=== PATIENT | female | born 1980 | race Caucasian/White ===

== ENCOUNTER 2023-01-21 08:06 | Emergency (ER) | payer BC ==
--- NOTE | 2023-01-21 08:31 | ED Physician Documentation ---
PD HPI ABD PAIN - Stated complaint Stated Complaint: BACK PX,VOMIT - Chief complaint Chief Complaint: Abd Pain - History obtained from History obtained from: Patient - History of Present Illness Timing - onset: Yesterday Timing - duration: Hours (12) Timing - details: Abrupt onset, Still present Quality: Aching, Sharp, Pain Location: RUQ Radiation: Right flank Improved by: No: Eating, Laying still Worsened by: Moving, Palpation. No: Eating, Breathing Associated symptoms: Nausea. No: Fever, Vomiting, Diarrhea, Constipation, Dysuria, Chest pain Similar symptoms before: Has not had sx before (she has had kidney stones in the past, but this is different location for that. RUQ pain currently.) Recently seen: Not recently seen Review of Systems Constitutional: denies: Fever, Chills GI: denies: Nausea, Vomiting, Diarrhea Skin: denies: Rash, Lesions Neurologic: denies: Generalized weakness, Near syncope PD PAST MEDICAL HISTORY - Past Medical History Cardiovascular: None Respiratory: None : Kidney stones - Present Medications Home Medications: Ambulatory Orders Medication Instructions Recorded Confirmed HYDROcod/ACETAM 5/325 [Oracle 5/325] 1 ea PO Q6H PRN #10 tablet 01/21/23 Ondansetron Odt [Zofran] 4 mg TL Q6H PRN #10 tablet 01/21/23 - Allergies Allergies/Adverse Reactions: Allergies Allergy/AdvReac Type Severity Reaction Status Date / Time No Known Drug Allergies Allergy Verified 01/21/23 08:19 PD ED PE NORMAL - Vitals Vital signs reviewed: Yes - General General: Alert and oriented X 3, Well developed/nourished, Other (appears very uncomfortable, holding upper abd. ) - Neck Neck: Supple, no meningeal sign, No adenopathy - Cardiac Cardiac: RRR, No murmur - Respiratory Respiratory: Clear bilaterally - Abdomen Abdomen: Normal bowel sounds, Soft, Non distended, No organomegaly, Other (tender RUQ with guarding and mild rebound. Right CVA tender as well. ) - Female Female : Deferred - Rectal Rectal: Deferred - Derm Derm: Normal color, Warm and dry - Extremities Extremities: No edema, No calf tenderness / cord - Neuro Neuro: Alert and oriented X 3, No motor deficit, Normal speech Results - Vitals Vitals: Vital Signs - 24 hr 01/21/23 01/21/23 10:27 11:45 Temperature 36.9 C Heart Rate 80 80 Respiratory 14 20 Rate Blood Pressure 121/66 138/84 H O2 Saturation 95 98 Oxygen O2 Source Room air - Labs Labs: Laboratory Tests 01/21/23 01/21/23 01/21/23 08:26 08:26 09:54 WBC 13.3 H RBC 5.06 Hgb 14.7 Hct 43.0 MCV 85.0 MCH 29.1 MCHC 34.2 RDW 12.5 Plt Count 259 MPV 10.8 Neut # (Auto) 10.6 H Lymph # (Auto) 2.2 [place] # (Auto) 0.4 Eos # (Auto) 0.0 Baso # (Auto) 0.0 Absolute Nucleated RBC 0.00 Nucleated RBC % 0.0 Sodium 137 Potassium 4.1 Chloride 104 Carbon Dioxide 22 Anion Gap 11.0 BUN 14 Creatinine 0.9 Estimated GFR (MDRD) 69 L Glucose 135 H Calcium 9.5 Total Bilirubin 0.6 AST 45 H ALT 65 H Alkaline Phosphatase 40 L Total Protein 8.4 H Albumin 4.8 Globulin 3.6 Albumin/Globulin Ratio 1.3 Lipase 27 Urine Color STRAW Urine Clarity CLEAR Urine pH 7.5 Ur Specific [place] 1.020 Urine Protein NEGATIVE Urine Glucose (UA) NEGATIVE Urine Ketones 15 H Urine Occult Blood SMALL H Urine Nitrite NEGATIVE Urine Bilirubin NEGATIVE Urine Urobilinogen 0.2 (NORMAL) Ur Leukocyte Esterase NEGATIVE Urine RBC 6-10 H Urine WBC 0-3 Ur Squamous Epith Cells FEW Squamous Urine Bacteria Few Ur Microscopic Review INDICATED Urine Culture Comments NOT INDICATED Urine HCG, Qual NEGATIVE - Rads (name of study) RUQ abd U/S Relevant Findings:: Prelim report reviewed, See rad report, Other (US tech - riht hydronephrosis. Normal gallbladder.) abd/ppelvic CT Relevant Findings:: Prelim report reviewed, See rad report (right hydroureter/nephrosis down to the UVJ, with 7 mm stone in bladder. ) PD Medical Decision Making - ED course Complexity details: reviewed results (Hydronephrosis and ureter right side, with 7 mm stone in the bladder (presume recently pased). ), considered differential, d/w patient ED course: Was having considerable pain in the right side mainly the upper abdomen and flank. My initial clinical impression was more likely gallbladder or right upper quadrant. With that, we discussed (the patient and I and her significant other, the initial testing of ultrasound versus CT. Given the area of tenderness, I opted for ultrasound first. This showed normal gallbladder and bile duct. Hydronephrosis was noted. The patient was still having pain. She had been given IV pain medications and repeat dose. Further discussion on the findings and we opted for the CT scan at this point. The patient did have a considerable improvement in her pain after repeat IV medications. She states it improved quite a bit prior to getting the CT scan. The CT scan showed hydroureter and hydronephrosis with a 7 mm stone apparently in the bladder. It seems she passed it while here in the ER. She is feeling considerably improved though still some pains. Likely this is from irritation and ureteral spasm and may continue to some degree for a couple of days. I would suggest some anti-inflammatories and still some pain medicine to have periodically if needed. The subsequent pain should improve over the next day or 2 though as inflammation and spasms decrease. Departure - Departure Disposition: 01 Home, Self Care Clinical Impression: Right sided abdominal pain, Ureterolithiasis Condition: Stable Record reviewed to determine appropriate education?: Yes Instructions: ED Stone Renal Passed Prescriptions: HYDROcod/ACETAM 5/325 [Oracle 5/325] 1 ea PO Q6H PRN #10 tablet PRN Reason: Pain Ondansetron Odt [Zofran] 4 mg TL Q6H PRN #10 tablet PRN Reason: Nausea / Vomiting Comments: Your ultrasound and CT scan shows swelling of the kidney and right ureter down to the level of just about the bladder. There is a stone visible in the bladder at this point so looks like you just passed it. There can still be subsequent pains and cramps in through the abdomen and flank due to inflammation and spasming of the ureter even after the stone passes. Stay well-hydrated. Use some anti-inflammatory such as ibuprofen or naproxen 2 to 3 tablets 2 or 3 times daily over the next 3 to 4 days to reduce those symptoms. Ondansetron if needed for nausea. Add Tylenol if needed for pain. It would be less likely to need stronger pain medicine at this point but still occasionally with the spasms and inflammation. I wrote a prescription for some pain pills to have just in case. I sent your prescription to [facility] in [place]. Your urine itself showed some signs of blood but no signs of infection. I would anticipate improvement over the next several days. Discharge Date/Time: 01/21/23 11:45
[2023-01-21 08:42] LABS: BASOPHILS % (AUTO) 0.2 %; EOSINOPHILS % (AUTO) 0.1 %; HGB - HEMOGLOBIN 14.7 g/dL (12.0-16.0); LYMPHOCYTES # (AUTO) 2.2 10^3/uL (1.5-3.5); LYMPHOCYTES % (AUTO) 16.7 %; MEAN CORPUSCULAR HEMOGLOBIN 29.1 pg (27.0-31.0); MEAN CORPUSCULAR HGB CONC 34.2 g/dL (32.0-36.0); MEAN PLATELET VOLUME 10.8 fL (7.9-10.8); MONOCYTES # (AUTO) 0.4 10^3/uL (0.0-1.0); MONOCYTES % (AUTO) 2.9 %; NEUTROPHILS # (AUTO) 10.6 10^3/uL (1.5-6.6); NEUTROPHILS % (AUTO) 79.9 %; PLT - PLATELET COUNT 259 10^3/uL (130-450); RED BLOOD COUNT 5.06 10^6/uL (4.20-5.40); RED CELL DISTRIBUTION WIDTH 12.5 % (12.0-15.0); WHITE BLOOD COUNT 13.3 x10^3/uL (4.8-10.8)
[2023-01-21 08:52] LABS: ALBUMIN 4.8 g/dL (3.2-5.5); ALBUMIN/GLOBULIN RATIO 1.3 (1.0-2.2); BILIRUBIN,TOTAL 0.6 mg/dL (0.2-1.0); CALCIUM 9.5 mg/dL (8.5-10.3); CREATININE 0.9 mg/dL (0.4-1.0); POTASSIUM 4.1 mmol/L (3.5-5.0); TOTAL PROTEIN 8.4 g/dL (6.7-8.2)
[2023-01-21] MEDS ORDERED: HYDROmorphone 1 MG/ML CARPUJECT IVP STA ×2 (08:55→09:50)
[2023-01-21] MEDS ORDERED: KETOROLAC 15 MG/ML VIAL IVP STA (08:55)
[2023-01-21] MEDS ORDERED: SODIUM CHLORIDE 0.9% 1,000 ML IV STA (08:55)
[2023-01-21] MEDS ORDERED: ONDANSETRON 4 MG/2 ML VIAL IVP STA (08:55)
[2023-01-21] MEDS ORDERED: DROPERIDOL 5 MG/2 ML VIAL IVP STA (09:50)
[2023-01-21] MEDS ORDERED: iohexoL-300 100 ML VIAL ONE (10:01)
[2023-01-21 10:13] LABS: BILIRUBIN,URINE NEGATIVE (NEGATIVE); CLARITY,URINE CLEAR (CLEAR); GLUCOSE, URINE (UA) NEGATIVE (NEGATIVE); HCG UR QUAL NEGATIVE; KETONES,URINE (UA) 15 mg/dL (NEGATIVE); LEUKOCYTE ESTERASE, URINE NEGATIVE (NEGATIVE); NITRITE,URINE NEGATIVE (NEGATIVE); OCCULT BLOOD,URINE SMALL (NEGATIVE); PH,URINE 7.5 PH (5.0-7.5); PROTEIN,URINE NEGATIVE (NEGATIVE); UROBILINOGEN,URINE 0.2 (NORMAL) E.U./dL (NORMAL)
[2023-01-21] MEDS ORDERED: iohexoL-300 100 ML VIAL IVP ONE (10:16)
[2023-01-21 10:27] LABS: BACTERIA,URINE Few /HPF (None Seen); SQUAMOUS EPITHELIAL CELL,UR FEW Squamous (<= Few); WBC,URINE 0-3 /HPF (0-5)
--- NOTE | 2023-01-21 10:30 | CT Report ---
PROCEDURE: ABDOMEN/PELVIS W INDICATIONS: right abd/flank pain CONTRAST: 100ml Omipaque 300 TECHNIQUE: After the administration of IV contrast, 5 mm thick sections acquired from the diaphragms to the symp hysis. 5 mm thick coronal and sagittal reformats were acquired. For radiation dose reduction, the f ollowing was used: automated exposure control, adjustment of mA and/or kV according to patient size. COMPARISON: Ultrasound of abdomen from the same day. FINDINGS: Image quality: Excellent. Lung bases and heart: Unremarkable. Liver: No solid mass. Hepatic steatosis is seen. Gallbladder and biliary tree: Gallbladder is within normal limits. No biliary ductal dilatation. Spleen: No splenomegaly. Pancreas: No pancreatic ductal dilation. Adrenals: No adrenal nodule. Kidneys and ureters: Moderate right-sided hydronephrosis and right perinephric fat stranding is seen. There is also right hydroureter extending to the level of right UVJ. Nonobstructing stones are seen scattered in mid and lower pole of right kidney measures up to 7 mm in size. No left-sided hydronephr osis or hydroureter. Simple left renal cortical cyst is seen measures 1 cm in size. No renal cystic l esion which requires follow up. No solid mass. Bowel and peritoneum: No bowel distension. No pathologic free fluid. Appendix is visualized and is w ithin normal limits. Lymph nodes: No central or retroperitoneal adenopathy. Vessels: No infrarenal aortic aneurysm. PELVIS Reproductive organs: Unremarkable. Bladder: 7 mm calcification is seen within dependent portion of bladder lumen and measures 933 [place] unit in density. No abnormal wall thickening, accounting for underdistension. Pelvic lymph nodes: No pelvic adenopathy by size criteria. Bones: No aggressive osseous abnormality. Other: No significant ventral or inguinal hernia. IMPRESSION: 1. Finding is suggestive of a passed 7 mm right-sided renal stone with moderate right hydronephrosis and hydroureter. Mild to moderate right perinephric fat stranding or fluid. Nonobstructing stones als o seen in right kidney. No left-sided renal stones or hydronephrosis. Normal-appearing urinary bladde r. 2. No bowel obstruction or abnormal bowel wall thickening. No abscess collection. No free fluid of fr ee air. Normal appendix. 3. Hepatic steatosis, no discrete hepatic lesion. Reviewed by: Scotty Narayanan MD on 01/21/2023 10:29 AM PDT Approved by: Scotty Narayanan MD on 01/21/2023 10:29 AM PDT Station ID: [id number]
--- NOTE | 2023-01-21 10:46 | Ultrasound Report ---
PROCEDURE: Abdomen Limited INDICATIONS: RUQ abd pain onset midnight TECHNIQUE: Real-time focused scanning was performed of the abdomen, with image documentation. COMPARISONS: Same day CT. FINDINGS: Liver: Increased liver echogenicity, with posterior attenuation, most consistent with moderate to se marvin hepatic steatosis. Gallbladder: Unremarkable. Biliary ducts: Intrahepatic bile ducts are non-dilated. Extrahepatic bile duct caliber measures 4 m m. Normal is 6-7 mm or less in diameter, or 10 mm or less post-cholecystectomy. Pancreas: Visualized portions of the pancreas are sonographically normal. Right kidney: Right sided hydronephroureter. IVC: Intrahepatic inferior vena cava is patent. Miscellaneous: No free abdominal fluid. IMPRESSION: Right sided hydronephroureter, suggestive of obstruction. Please see dedicated CT report. Reviewed by: Ventura Clemons on 01/21/2023 10:44 AM PDT Approved by: Ventura Clemons on 01/21/2023 10:44 AM PDT Station ID: [id number]
[2023-01-21 11:50] VITALS: BP 138/84
== END 2023-01-21 11:45 | disposition home or self-care (01) ==
LOC: ED 08:06
DX: N13.2 Hydronephrosis with renal and ureteral calculous obstruction (principal)
CPT/HCPCS: 36415; 74177; 76705; 80053; 81001; 81025; 83690; 85025; 96374; 96375; 96376; 99284; J1170; Q9967; 81003; 87086